=== PATIENT | female | born 1985 | race Caucasian/White ===

== ENCOUNTER 2022-01-25 06:00 | Day surgery (SDC) | payer OTHER ==
[~2022-01-25] VITALS: Ht 170.2 cm; Wt 104.3 kg
[2022-01-25] MEDS ORDERED: BUPIVACAINE-MPF 0.25% 30 ML VIAL INJ ONE (07:26)
[2022-01-25] MEDS ORDERED: fentaNYL citrate 0.05 MG/ML VIAL ONE (12:18)
[2022-01-25] MEDS ORDERED: SEVOFLURANE 250 ML BTL INH ONE (12:23)
[2022-01-25] MEDS ORDERED: KETOROLAC 30 MG/ML VIAL IVP SCH (12:40)
[2022-01-25] MEDS ORDERED: ROCURONIUM 50 MG/5 ML VIAL IV ONE ×2 (12:49)
[2022-01-25] MEDS ORDERED: PROPOFOL 200 MG/20 ML VIAL IV ONE ×2 (13:01)
[2022-01-25] MEDS ORDERED: KETOROLAC 30 MG/ML VIAL ONE (13:17)
[2022-01-25] MEDS ORDERED: ONDANSETRON 4 MG/2 ML VIAL ONE (13:17)
[2022-01-25] MEDS ORDERED: NEOSTIGMINE 1:1000 10 MG/10 ML VIAL ONE (13:41)
[2022-01-25] MEDS ORDERED: GLYCOPYRROLATE 0.2 MG/ML VIAL ONE ×5 (13:41)
[2022-01-25] MEDS ORDERED: BLOOD GLUCOSE MONITORING 1 DEV DEV FS SCH (14:05)
[2022-01-25] MEDS ORDERED: LABETALOL 20 MG/4 ML VIAL IVP PRN (14:05)
[2022-01-25] MEDS ORDERED: NACL 0.9% 1,000 ML IV SCH (14:05)
[2022-01-25] MEDS ORDERED: hydrALAZINE 20 MG/ML VIAL IVP PRN (14:05)
[2022-01-25] MEDS ORDERED: diphenhydrAMINE 50 MG/ML VIAL IVP PRN (14:05)
[2022-01-25] MEDS ORDERED: HYDROmorphone 1 MG/ML AMP IVP PRN (14:05)
[2022-01-25] MEDS ORDERED: METOCLOPRAMIDE 10 MG/2 ML INJ VIAL IVP PRN (14:10)
== END 2022-01-25 15:35 | disposition home or self-care (01) ==
LOC: MDS 06:00 → MMU 06:02 → MDS 15:35
PROVIDERS: ATTEND Obstetrics & Gynecology
DX: Z30.2 Encounter for sterilization (principal); N92.0 Excessive and frequent menstruation with regular cycle; N93.9 Abnormal uterine and vaginal bleeding, unspecified; E11.9 Type 2 diabetes mellitus without complications; E78.00 Pure hypercholesterolemia, unspecified; Z20.822 Contact with and (suspected) exposure to COVID-19; E66.01 Morbid (severe) obesity due to excess calories
CPT/HCPCS: 36415; 58563; 58661; 84702; 86886; 86900; 86901; 87426; 88302; 88305; J1885; J2405; J2704; J2710; J3010; J3490

== ENCOUNTER 2023-05-10 14:00 | Emergency (ER) | payer OTHER ==
[~2023-05-10] VITALS: Ht 172.7 cm; Wt 108.9 kg
[2023-05-10 14:16] VITALS: BP 143/81; PULSE 63; RESP 18; TEMP 97.7; O2SAT 100
[2023-05-10 15:40] VITALS: O2SAT 100
[2023-05-10] MEDS ORDERED: BACITRACIN OINT 500 UNITS/GM PKT TP ONE (15:45)
[2023-05-10] MEDS ORDERED: LIDOCAINE MPF 1% 10 MG/ML VIAL INJ ONE (15:45)
[2023-05-10] MEDS ORDERED: IBUP-2213 PO (16:31)
[2023-05-10] MEDS ORDERED: BACI-418 TP (16:31)
== END 2023-05-10 16:50 | disposition home or self-care (01) ==
LOC: MED 14:00
DX: S61.412A Laceration without foreign body of left hand, initial encounter (principal); E11.9 Type 2 diabetes mellitus without complications; W25.XXXA Contact with sharp glass, initial encounter; Y93.G1 Activity, food preparation and clean up; Y92.89 Other specified places as the place of occurrence of the external cause; Y99.8 Other external cause status
CPT/HCPCS: 12001; 73120; 90471; 90715; 99283; J2001; Q0092

== ENCOUNTER 2023-05-21 08:17 | Emergency (ER) | payer OTHER ==
[~2023-05-21] VITALS: Ht 172.7 cm; Wt 108.9 kg
[~2023-05-21 08:17] MED LIST: BACI-418 TP; IBUP-2213 PO
[2023-05-21 08:26] VITALS: BP 101/57; PULSE 68; RESP 20; TEMP 98.3; O2SAT 99
[2023-05-21 08:53] VITALS: BP 101/57; PULSE 68; RESP 20; TEMP 98.3; O2SAT 99
== END 2023-05-21 08:53 | disposition home or self-care (01) ==
LOC: MED 08:17
DX: S61.412D Laceration without foreign body of left hand, subsequent encounter (principal); Z48.02 Encounter for removal of sutures; X58.XXXD Exposure to other specified factors, subsequent encounter
CPT/HCPCS: 99281

== ENCOUNTER 2024-06-21 21:02 | Emergency (ER) | payer OTHER ==
[~2024-06-21] VITALS: Ht 172.7 cm; Wt 108.9 kg
[2024-06-21 21:19] VITALS: BP 111/72; PULSE 87; RESP 18; TEMP 98.3; O2SAT 100
== END 2024-06-21 22:06 | disposition home or self-care (01) ==
LOC: MED 21:02
DX: F41.9 Anxiety disorder, unspecified (principal); F12.90 Cannabis use, unspecified, uncomplicated; E11.9 Type 2 diabetes mellitus without complications; Z79.899 Other long term (current) drug therapy
CPT/HCPCS: 82948; 99282